=== PATIENT | male | born 1980 | race Caucasian/White ===

== ENCOUNTER 2020-04-04 08:00 | Emergency (ER) | payer MEDICAID ==
[2020-04-04 08:21] VITALS: BP 123/101
[2020-04-04] MEDS ORDERED: LIDOCAINE PATCH 5% TOP STA (08:23)
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
== END 2020-04-04 11:08 | disposition home or self-care (01) ==
LOC: ED 08:00
DX: S62.393A Other fracture of third metacarpal bone, left hand, initial encounter for closed fracture (principal); W51.XXXA Accidental striking against or bumped into by another person, initial encounter; Y93.89 Activity, other specified; Y92.009 Unspecified place in unspecified non-institutional (private) residence as the place of occurrence of the external cause; Z59.0 Homelessness
CPT/HCPCS: 29125; 73130; 99283; 99284; A9270